=== PATIENT | male | born 1975 | race Two or more races ===

== ENCOUNTER 2025-11-06 06:50 | Inpatient (IN) | payer MEDICAID, OTHER ==
[~2025-11-06] VITALS: Ht 165.1 cm; Wt 78.2 kg
--- NOTE | 2025-11-06 07:27 | ED.PDOC ---
History of Present Illness(SKN HPI Comments 50 year old male PMHx DM presents to the ED with a chief complaint of abscess onset 1 month. He has been experiencing abscess to neck for the past month, as well as 2 small abscesses to groin region, keeps getting abscess different parts of his body, burst and return. Upon ED arrival, patient was hypertensive with BP of 210/119. Spouse states patient has DM, is not complaint with medication, has not seen PCP. Denies fever, chills, nausea, vomiting, diarrhea, headache, dizziness, recent travel, chest pain, shortness of breath. No other symptoms or modifying factors present at this time. Chief Complaint: Abscess Time Seen by MD: 07:20 History of Present Illness: Medications, Allergies Allergies: Coded Allergies: NO KNOWN ALLERGIES (Unverified , 11/06/25) Information Source: Patient, Relative Mode of Arrival: Ambulatory Severity: Moderate Timing: Months Duration: Since onset Prehospital treatment: None Location: Neck, Pelvis Mechanism: Preceding Wound Object: None Condition of Object: None Wound Type: Abscess Immunization Status of Animal: NA History of: Diabetes Past Medical History PAST MEDICAL HISTORY: DM Surgical History: Denies all surgeries Family History Family History: Reviewed,noncontributory to illness, No family hx of Cancer, No family hx of DM, No family hx of Heart gómez, No family hx of HTN, No family hx ofKidney gómez, No family hx of Liver gómez, No family hx of Lung gómez, No family hx of Stroke Social History Smoker: Non-Smoker Alcohol: Denies ETOH Use Drugs: Denies Drug Use Lives In: Home Constitutional: denies: chills, diaphoresis, fatigue, fever, malaise, sweats, weakness, others EENTM: denies: blurred vision, double vision, ear bleeding, ear discharge, ear drainage, ear pain, ear ringing, eye pain, eye redness, hearing loss, mouth pain, mouth swelling, nasal discharge, nose bleeding, nose congestion, nose pain, photophobia, tearing, throat pain, throat swelling, voice changes, others Respiratory: denies: cough, hemoptysis, orthopnea, SOB at rest, shortness of breath, SOB with excertion, stridor, wheezing, others Cardiovascular: denies: chest pain, dizzy spells, diaphoresis, Dyspnea on exertion, edema, irregular heart beat, left arm pain, lightheadedness, palpitations, PND, syncope, others Gastrointestinal: denies: abdomen distended, abdominal pain, blood streaked bowels, constipated, diarrhea, dysphagia, difficulty swallowing, hematemesis, melena, nausea, poor appetite, poor fluid intake, rectal bleeding, rectal pain, vomiting, others Genitourinary: denies: burning, dysuria, flank pain, frequency, hematuria, incontinence, penile discharge, penile sore, pain, testicle pain, testicle swelling, urgency, others Neurological: denies: dizziness, fainting, headache, left sided numbness, left sided weakness, numbness, paresthesia, pre-existing deficit, right sided numbness, right sided weakness, seizure, speech problems, tingling, tremors, weakness, others Musculoskeletal: denies: back pain, gout, joint pain, joint swelling, muscle pain, muscle stiffness, neck pain, others Integumetry: reports: others (abscess neck, groin); denies: bruises, change in color, change in hair/nails, dryness, laceration, lesions, lumps, rash, wounds Allergic/Immunocompromised: denies: Difficulty Healing, Frequent Infections, Hives, Itching, others Hematologic/Lymphatic: denies: anemia, blood clots, easy bleeding, easy bruising, swollen glands, others Endocrine: denies: excessive hunger, excessive sweating, excessive thirst, excessive urination, flushing, intolerance to cold, intolerance to heat, unexplained weight gain, unexplained weight loss, others Psychiatric: denies: anxiety, bipolar disorder, depression, hopeless, panic disorder, schizophrenia, sleepless, suicidal, others All Other Systems: Reviewed and Negative Physical Exam General Appearance: No Apparent Distress, Normal HEENT: Normal ENT Inspection, Pharynx Normal, TMs Normal Neck: Full Range of Motion, Non-Tender, Normal Inspection Respiratory: Chest Non-Tender, Lungs Clear, No Accessory Muscle Use, No Respiratory Distress, Normal Breath Sounds Cardiovascular: No Edema, No JVD, No Murmur, No Gallop, Normal Peripheral Pulses, Regular Rate/Rhythm Breast Exam: Deferred Gastrointestinal: No Organomegaly, Non Tender, No Pulsatile Mass, Normal Bowel Sounds, Soft Genitalia: Deferred Pelvic: Deferred Rectal: Deferred Extremities: No calf tenderness, Normal capillary refill, Normal inspection, Normal range of motion, Non-tender, No pedal edema Musculoskeletal : Apperance: Normal Neurologic: Alert, storage battery charger II-XII nml as Tested, No Motor Deficits, Normal Affect, Normal Mood, No Sensory Deficits Cerebellar Function: Normal Reflexes: Normal Skin: Dry, Normal Color, Warm Lymphatic: No Adenopathy Was a procedure done? Was a procedure done?: No Differential Diagnosis (INTG) Differential Diagnosis: Cellulitis Abscess: Abscess, Cellulitis X-Ray, Labs, Meds, VS Vital Signs Date Time Temp Pulse Resp B/P (MAP) Pulse Ox O2 Delivery O2 Flow Rate FiO2 11/06/25 09:36 97 16 216/118 11/06/25 09:31 97.8 97 16 216/118 (150) 99 97.8 11/06/25 07:49 89 16 98 Room Air* 0 21 11/06/25 07:47 98.2 89 16 184/101 (128) 98 98.2 11/06/25 06:52 100 20 210/119 96 Lab Test 11/06/25 10:05 11/06/25 07:34 Range/Units Urine Color Light-yellow Yellow Urine Clarity Clear Clear Urine pH 6.0 5.0-9.0 Urine Specific [place] 1.037 H 1.001-1.035 Urine Protein 2+ H Negative Urine Ketones Negative Negative Urine Blood 2+ H Negative /uL Urine Nitrite Negative Negative Urine Bilirubin Negative Negative Urine Urobilinogen Normal Negative mg/dL Urine Leukocyte Esterase Negative Negative /uL Urine RBC 15 0 - 3 /hpf Urine Microscopic WBC 1 0-3 /HPF Urine Squamous Epithelial Cells Few <5 /hpf Urine Bacteria None seen None Seen /hpf Urine Glucose 4+ H Normal mg/dL White Blood Count 11.0 H 4.4-10.8 10^3/uL Red Blood Count 5.14 4.5-5.90 10^6/uL Hemoglobin 15.4 13.5-17.5 g/dL Hematocrit 45.2 41.0-53.0 % Mean Corpuscular Volume 87.9 80.0-100.0 fL Mean Corpuscular Hemoglobin 29.9 28.0-32.0 pg Mean Corpuscular Hemoglobin Concent 34.0 32.0-36.0 g/dL Red Cell Distribution Width 13.2 11.8-14.3 % Platelet Count 388 140-450 10^3/uL Mean Platelet Volume 7.7 6.9-10.8 fL Neutrophils (%) (Auto) 79.9 37.0-80.0 % Lymphocytes (%) (Auto) 12.4 10.0-50.0 % Monocytes (%) (Auto) 7.1 0.0-12.0 % Eosinophils (%) (Auto) 0.3 0.0-7.0 % Basophils (%) (Auto) 0.3 0.0-2.0 % Neutrophils # (Auto) 8.8 H 1.6-8.6 10 ^3/uL Lymphocytes # (Auto) 1.4 0.4-5.4 10 ^3/uL Monocytes # (Auto) 0.8 0-1.3 10 ^3/uL Eosinophils # (Auto) 0 0-0.8 10 ^3/uL Basophils # (Auto) 0 0-0.2 10 ^3/uL Nucleated Red Blood Cells 0.0 % Prothrombin Time 9.9 9.3-11.8 sec Prothrombin Time INR 0.93 0.9-1.15 Activated Partial Thromboplast Time 29.3 24.5-34.5 SEC Sodium Level 133 L 136-145 mmol/L Potassium Level 4.0 3.5-5.1 mmol/L Chloride Level 96 L 98-107 mmol/L Carbon Dioxide Level 27 20-31 mmol/L Anion Gap 10 5-15 Blood Urea Nitrogen 13 9-23 mg/dL Creatinine 1.15 0.700-1.30 mg/dL Glomerular Filtration Rate Calc 77 >90 mL/min BUN/Creatinine Ratio 11.3 10.0-20.0 Serum Glucose 384 H 74-106 mg/dL Lactic Acid Level 0.9 0.4-2.0 mmol/L Calcium Level 9.4 8.7-10.4 mg/dL Total Bilirubin 0.6 0.2-1.0 mg/dL Aspartate Amino Transferase (AST) 14 13-40 U/L Alanine Aminotransferase (ALT) 21 7-40 U/L Alkaline Phosphatase 104 46-116 U/L Total Protein 7.3 5.7-8.2 g/dL Albumin 4.0 3.2-4.8 g/dL Current Medications Medications (Trade) Dose Ordered Sig/Christopher Route Start Time Stop Time Status Last Admin Lactated Ringer's 1,850 ml @ 1,850 mls/hr ONCE ONCE IV 12/15/25 07:30 11/06/25 08:29 DC 11/06/25 08:01 Vancomycin HCl 250 ml @ 250 mls/hr ONCE ONCE IV 11/06/25 07:30 11/06/25 08:29 DC 11/06/25 08:08 Cefepime HCl 50 ml @ 12.5 mls/hr ONCE ONCE IV 11/06/25 07:30 11/06/25 11:29 11/06/25 09:56 Morphine Sulfate 4 mg ONCE ONCE IV 11/06/25 09:30 11/06/25 09:31 DC 11/06/25 09:36 Ondansetron HCl (Zofran) 4 mg ONCE ONCE IV 11/06/25 09:30 11/06/25 09:31 DC 11/06/25 09:36 [place] [id number] Ph: [phone] DIAGNOSTIC IMAGING Diagnostic Imaging Report : [id number] Signed PATIENT: BRANNON HOFFMANN ACCT: [id number] UNIT: [id number] : 1975 LOC: ER ROOM / BED: / AGE / SEX: 50 / M ADM STATUS: REG ER SERVICE 8 ORDERING PHYSICIAN: DEANNE JONES MD PROCEDURE(s): CXRP - CHEST PORTABLE REASON: htn ORDER NUMBER(s): [id number], ACCESSION NUMBER(s): [id number] EXAM: XY CHEST PORTABLE HISTORY: htn COMPARISON: Chest x-ray dated 12/12/2022 was not made available on the PACS system for viewing. TECHNIQUE: Portable AP view of the chest was performed. FINDINGS: No pneumothorax or consolidative infiltrates. There is central interstitial prominence. The heart is borderline enlarged. IMPRESSION: Central interstitial prominence may be due to reactive airways disease or mild CHF. The lungs are otherwise clear. ATED BY: GISELL WALLACE MD DICTATED DATE/TIME: 11/06/25800 SIGNED BY: GISELL WALLACE MD SIGNED DATE/TIME: 11/06/25800 CC: Time of 1ST Reevaluation: 07:50 Reevaluation 1ST: Unchanged Patient Education/Counseling: Diagnosis, Treatment, Prognosis Family Education/Counseling: Diagnosis, Treatment, Prognosis SEPSIS Sepsis Screen Date sepsis recognized/suspect: Nov 06, 2025 Time Sepsis recognized/suspect: 655 Recent Procedure: No On Antibiotic Therapy: No Respiratory Rate >20: No Heart Rate >90: No Temp<36 C (96.8 F) or >38.3 C: No SBP <90 or MAP <65 mmHG: No New Acute Mental Status Change: No Is the patient on CPAP, BIPAP,: No Physician Orders Chest Portable (11/06/25 07:19) Accucheck (11/06/25 07:19) Blood Culture (11/06/25 07:19) Cefepime 1gm/50ml (Maxipime 1gm/50ml) (11/06/25 07:30) Notify Md If Map <65 Or Bp<90 (11/06/25 07:19) If Map<65 Start Vasopressor (11/06/25 07:19) Sepsis Reassesment After Fluid (11/06/25 08:19) Hydralazine Injection (Apresoline Inject (11/06/25 10:45) Vital Signs Date Time Temp Pulse Resp B/P (MAP) Pulse Ox O2 Delivery O2 Flow Rate FiO2 11/06/25 09:36 97 16 216/118 11/06/25 09:31 97.8 97 16 216/118 (150) 99 97.8 11/06/25 07:49 89 16 98 Room Air* 0 21 11/06/25 07:47 98.2 89 16 184/101 (128) 98 98.2 11/06/25 06:52 100 20 210/119 96 Laboratory Tests Test 11/06/25 07:34 Lactic Acid Level 0.9 mmol/L (0.4-2.0) White Blood Count 11.0 10^3/uL (4.4-10.8) H Medications Medications Dose Ordered Sig/Christopher Route Start Time Stop Time Status Last Admin Dose Admin Cefepime HCl 50 ml @ 12.5 mls/hr ONCE ONCE IV 11/06/25 07:30 11/06/25 11:29 11/06/25 09:56 Lactated Ringer's 1,850 ml @ 1,850 mls/hr ONCE ONCE IV 11/06/25 07:30 11/06/25 08:29 DC 11/06/25 08:01 Morphine Sulfate 4 mg ONCE ONCE IV 11/06/25 09:30 11/06/25 09:31 DC 11/06/25 09:36 Ondansetron HCl 4 mg ONCE ONCE IV 11/06/25 09:30 11/06/25 09:31 DC 11/06/25 09:36 Vancomycin HCl 250 ml @ 250 mls/hr ONCE ONCE IV 11/06/25 07:30 11/06/25 08:29 DC 11/06/25 08:08 Departure 1 Departure Time of Disposition: 10:34 (Patient presented with hypertension and symptoms concerning for hypertensive emergency. Patient is receiving iv blood pressure medications requiring intensive monitoring. Data: 1. I ordered and reviewed the result of at least 3 labs including a CBC, BMP, and Urinalysis. 2. I independently interpreted the following tests: Chest x-ray some pulmonary vascular congestion. EKG which is Normal Sinus RhythmRisk:This patient has a high risk of morbidity due to further diagnostic testing or treatment and may suffer from an acute cardiac disorder. Workup reveals hypertensive emergency and patient should be admitted for further workup. and possible expert consultation. Patient with multiple abscesses concerning for possible diffuse cellulitis or sepsis. We will admit patient for further workup) Impression: Primary Impression: Hypertensive urgency Additional Impressions: Abscess Cellulitis Disposition: ADMITTED INPATIENT Admit to: Tele Condition: Guarded Critical Care Note Critical Care Time?: Yes Critical care comment: Hypertensive urgency Authorized and Performed by: Deanne Jones MD Total critical care time: Approximately 37 minutes Due to a high probability of clinically significant, life threatening deterioration, the patient required my highest level of preparedness to intervene emergently and I personally spent this critical care time directly and personally managing the patient. This critical care time included obtaining a history; examining the patient; pulse oximetry; ordering and review of studies; arranging urgent treatment with development of a management plan; evaluation of patient's response to treatment; frequent reassessment; and, discussions with other providers. This critical care time was performed to assess and manage the high probability of imminent, life-threatening deterioration that could result in multi-organ failure. It was exclusive of separately billable procedures and treating other patients and teaching time. Please see my other sections and the rest of the note for further information on patient assessment and treatment. Stability Stability form required: No Heart Score Heart Score: Heart Score Response (Comments) Value History N/A 0 EKG N/A 0 Age N/A 0 Risk Factors N/A 0 Troponin N/A 0 Total 0 I personally scribed for DEANNE JONES MD ([email or web address]) on 11/06/25 at 07:27. Electronically submitted by Silvana Rios ([email or web address]). I personally scribed for DEANNE JONES MD ([email or web address]) on 11/06/25 at 08:07. Electronically submitted by Silvana Rios ([email or web address]). DEANNE JONES MD Nov 06, 2025 07:27
[2025-11-06 07:49] VITALS: PULSE 89; RESP 16; O2SAT 98
[2025-11-06] MEDS: LACTATED RINGER'S 1,850 ML IV ONE (08:01)
--- NOTE | 2025-11-06 08:03 | DVH ---
EXAM: XY CHEST PORTABLE HISTORY: htn COMPARISON: Chest x-ray dated 12/12/2022 was not made available on the PACS system for viewing. TECHNIQUE: Portable AP view of the chest was performed. FINDINGS: No pneumothorax or consolidative infiltrates. There is central interstitial prominence. The heart is borderline enlarged. IMPRESSION: Central interstitial prominence may be due to reactive airways disease or mild CHF. The lungs are otherwise clear.
[2025-11-06] MEDS: VANCOMYCIN 1GM/250ML KIT 250 ML IV ONE (08:08)
[2025-11-06 08:17] LABS: Hematocrit 45.2 % (41.0-53.0); Hemoglobin 15.4 g/dL (13.5-17.5); Mean Corpuscular Hemoglobin 29.9 pg (28.0-32.0); Mean Corpuscular Volume 87.9 fL (80.0-100.0); Nucleated Red Blood Cells % 0.0 %
[2025-11-06 08:30] LABS: Alanine Aminotransferase 21 U/L (7-40); Albumin 4.0 g/dL (3.2-4.8); Alkaline Phosphatase 104 U/L (46-116); Anion Gap 10 (5-15); BUN/Creatinine Ratio 11.3 (10.0-20.0); Blood Urea Nitrogen 13 mg/dL (9-23); Calcium 9.4 mg/dL (8.7-10.4); Carbon Dioxide 27 mmol/L (20-31); Potassium 4.0 mmol/L (3.5-5.1); Total Protein 7.3 g/dL (5.7-8.2)
[2025-11-06 08:31] LABS: Bilirubin, Total 0.6 mg/dL (0.2-1.0); Chloride 96 mmol/L (98-107); Glucose 384 mg/dL (74-106); INR 0.93 (0.9-1.15); Partial Thromboplastin Time 29.3 SEC (24.5-34.5); Prothrombin Time 9.9 sec (9.3-11.8); Sodium 133 mmol/L (136-145)
[2025-11-06] MEDS: ONDANSETRON HCL 4 MG/2 ML VIAL IV ONE (09:36)
[2025-11-06] MEDS: MORPHINE SULFATE 4 MG/ML SYR/VIAL IV ONE (09:36)
[2025-11-06] MEDS: CEFEPIME 1GM/50ML 50 ML IV ONE (09:56)
[2025-11-06 10:23] LABS: Urine Protein, UAD 2+ (Negative)
[2025-11-06] MEDS: hydrALAZINE HCL 20 MG/ML VL IV ONE (11:05)
[2025-11-06] MEDS ORDERED: DEXTROSE (50%) 50ML SYRG IV PRN ×2 (12:45→18:00)
[2025-11-06] MEDS ORDERED: DOCUSATE SOD 100 MG CAP PO PRN (12:45)
[2025-11-06] MEDS ORDERED: ACETAMINOPHEN 325 MG TAB PO PRN (12:45)
[2025-11-06] MEDS: SODIUM CHLORIDE 0.9% 1,000 ML IV ONE (12:45)
--- NOTE | 2025-11-06 13:03 | DVHHP2 ---
History of Present Illness Reason for Visit: Abscess History of Present Illness Marcelino Carbajal is a 50-year-old male with past medical history of hypertension and diabetes, who came to the hospital for an abscess on his neck, and 2 in his groin. Patient states he has had the abscess for a few days. He has popped both abscess on the right side of his groin. He states he finally came in due to the pain from the abscess on his neck. He is having difficulty moving due to the pain. Patient admits to being diabetic and having hypertension, but not following up with primary care provider and not having any medications. Cardiovascular: HTN Endocrine: Diabetes Past Surgical History: None Smoke: No ALCOHOL: occassional Drugs: Other (Methamphetamines) Lives: with Family Domestic Violence: Neg Review of Systems Constitutional: No: Fever, Chills, Sweats, Weakness, Malaise, Other Eyes: No: Pain, Vision change, Conjunctivae inflammation, Eyelid inflammation, Other, Redness ENT: No: Ear pain, Ear discharge, Nose pain, Nose discharge, Nose congestion, Mouth pain, Mouth swelling, Throat pain, Throat swelling, Other Respiratory: No: Cough, Dry, Shortness of breath, SOB with excertion, Wheezing, Hemoptysis, Pleuritic Pain, Sputum, Wheezing, Other Cardiovascular: No: Chest Pain, Palpitations, Orthopnea, Paroxysmal Noc. Dyspnea, Edema, Lt Headedness, Other Gastrointestinal: No: Nausea, Vomiting, Abdominal Pain, Diarrhea, Constipation, Melena, Hematochezia, Other Genitourinary: No Dysuria, No Frequency, No Incontinence, No Hematuria, No Retention, No Other Musculoskeletal: No: other, neck pain, shoulder pain, arm pain, back pain, hand pain, leg pain, foot pain Skin: Other (abscess on left side of neck, and 2 in right side of groin); No: Rash, Lesions, Jaundice, Bruising Neurological: No: Weakness, Numbness, Incoordination, Change in speech, Confusion, Seizures, Other Allergies: Coded Allergies: NO KNOWN ALLERGIES (Unverified , 11/06/25) Medications Current Medications Medications Dose Ordered Sig/Christopher Route Start Time Stop Time Status Last Admin Dose Admin Acetaminophen/ Hydrocodone Bitart 1 tab Q4HP PRN PO 11/06/25 12:45 UNV Ondansetron HCl 4 mg Q4HP PRN IV 11/06/25 12:45 UNV Docusate Sodium 100 mg BIDPRN PRN PO 11/06/25 12:45 UNV Acetaminophen 650 mg Q6HP PRN PO 11/06/25 12:45 UNV Morphine Sulfate 2 mg Q4HPRN PRN IV 11/06/25 12:45 UNV Diagnostic Test (Pha) 1 strip Q6HR 11/06/25 18:00 UNV Insulin Human Regular Q6HR SC 11/06/25 18:00 UNV Exam Vital Signs Vital Signs Date Time Temp Pulse Resp B/P (MAP) Pulse Ox O2 Delivery O2 Flow Rate FiO2 11/06/25 11:26 98.6 102 18 167/96 (119) 97 98.6 11/06/25 07:49 Room Air* 0 21 General Appearance: Alert, Oriented X3, Cooperative, mild distress HEENT: Atraumatic, PERRLA Respiratory: Clear to auscultation, Normal air movement Cardiovascular: Regular rate, Normal S1, Normal S2, No murmurs Abdominal: Normal bowel sounds, Soft, No tenderness, No hepatospenomegaly Extremities: No clubbing, No cyanosis, No edema, Normal pulses, No tenderness/swelling Skin: No rashes, No breakdown, No significant lesion Neuro: Normal gait, Normal speech, Strength at 5/5 X4 ext Psych/Mental Status: Mental status NL Labs/Xrays Labs Test 11/06/25 10:05 11/06/25 07:34 Range/Units Urine Color Light-yellow Yellow Urine Clarity Clear Clear Urine pH 6.0 5.0-9.0 Urine Specific [place] 1.037 H 1.001-1.035 Urine Protein 2+ H Negative Urine Ketones Negative Negative Urine Blood 2+ H Negative /uL Urine Nitrite Negative Negative Urine Bilirubin Negative Negative Urine Urobilinogen Normal Negative mg/dL Urine Leukocyte Esterase Negative Negative /uL Urine RBC 15 0 - 3 /hpf Urine Microscopic WBC 1 0-3 /HPF Urine Squamous Epithelial Cells Few <5 /hpf Urine Bacteria None seen None Seen /hpf Urine Glucose 4+ H Normal mg/dL White Blood Count 11.0 H 4.4-10.8 10^3/uL Red Blood Count 5.14 4.5-5.90 10^6/uL Hemoglobin 15.4 13.5-17.5 g/dL Hematocrit 45.2 41.0-53.0 % Mean Corpuscular Volume 87.9 80.0-100.0 fL Mean Corpuscular Hemoglobin 29.9 28.0-32.0 pg Mean Corpuscular Hemoglobin Concent 34.0 32.0-36.0 g/dL Red Cell Distribution Width 13.2 11.8-14.3 % Platelet Count 388 140-450 10^3/uL Mean Platelet Volume 7.7 6.9-10.8 fL Neutrophils (%) (Auto) 79.9 37.0-80.0 % Lymphocytes (%) (Auto) 12.4 10.0-50.0 % Monocytes (%) (Auto) 7.1 0.0-12.0 % Eosinophils (%) (Auto) 0.3 0.0-7.0 % Basophils (%) (Auto) 0.3 0.0-2.0 % Neutrophils # (Auto) 8.8 H 1.6-8.6 10 ^3/uL Lymphocytes # (Auto) 1.4 0.4-5.4 10 ^3/uL Monocytes # (Auto) 0.8 0-1.3 10 ^3/uL Eosinophils # (Auto) 0 0-0.8 10 ^3/uL Basophils # (Auto) 0 0-0.2 10 ^3/uL Nucleated Red Blood Cells 0.0 % Prothrombin Time 9.9 9.3-11.8 sec Prothrombin Time INR 0.93 0.9-1.15 Activated Partial Thromboplast Time 29.3 24.5-34.5 SEC Sodium Level 133 L 136-145 mmol/L Potassium Level 4.0 3.5-5.1 mmol/L Chloride Level 96 L 98-107 mmol/L Carbon Dioxide Level 27 20-31 mmol/L Anion Gap 10 5-15 Blood Urea Nitrogen 13 9-23 mg/dL Creatinine 1.15 0.700-1.30 mg/dL Glomerular Filtration Rate Calc 77 >90 mL/min BUN/Creatinine Ratio 11.3 10.0-20.0 Serum Glucose 384 H 74-106 mg/dL Lactic Acid Level 0.9 0.4-2.0 mmol/L Calcium Level 9.4 8.7-10.4 mg/dL Total Bilirubin 0.6 0.2-1.0 mg/dL Aspartate Amino Transferase (AST) 14 13-40 U/L Alanine Aminotransferase (ALT) 21 7-40 U/L Alkaline Phosphatase 104 46-116 U/L Total Protein 7.3 5.7-8.2 g/dL Albumin 4.0 3.2-4.8 g/dL EXAM: XY CHEST PORTABLE FINDINGS: No pneumothorax or consolidative infiltrates. There is central interstitial prominence. The heart is borderline enlarged. IMPRESSION: Central interstitial prominence may be due to reactive airways disease or mild CHF. The lungs are otherwise clear. SEPSIS Sepsis Screen Date sepsis recognized/suspect: Nov 06, 2025 Time Sepsis recognized/suspect: 655 Recent Procedure: No On Antibiotic Therapy: No Respiratory Rate >20: No Heart Rate >90: No Temp<36 C (96.8 F) or >38.3 C: No SBP <90 or MAP <65 mmHG: No New Acute Mental Status Change: No Is the patient on CPAP, BIPAP,: No Physician Orders Chest Portable (11/06/25 07:19) Accucheck (11/06/25 07:19) Blood Culture (11/06/25 07:19) Notify Md If Map <65 Or Bp<90 (11/06/25 07:19) If Map<65 Start Vasopressor (11/06/25 07:19) Sepsis Reassesment After Fluid (11/06/25 08:19) Admit (11/06/25 12:42) Code Status (11/06/25 12:42) Hydrocodone-Acet 5/325mg Tab (David 5/32 (11/06/25 12:45) Ondansetron Hcl (Zofran) (11/06/25 12:45) Docusate Sodium Capsule (Colace Capsule) (11/06/25 12:45) Complete Blood Count (11/07/25 04:00) Comprehensive Metabolic Panel (11/07/25 04:00) Npo (Nothing By Mouth) Diet (11/06/25 Lunch) Condition: Serious (11/06/25 12:42) Acetaminophen Tablet (Tylenol Tablet) (11/06/25 12:45) Morphine Sulfate Injection (11/06/25 12:45) Glucose Blood (Accu-Chek Comfort Curve T (11/06/25 18:00) Mild Sliding Scale Npo - Q6hr (11/06/25 18:00) Dextrose 50% Syringe (11/06/25 12:45) Npo Except For Medications (11/06/25 12:42) NS (11/06/25 12:45) Cefepime 1 Gm (11/06/25 14:00) Drug Screen (11/06/25 12:50) * Surgical Consult (11/06/25 ) Vital Signs Date Time Temp Pulse Resp B/P (MAP) Pulse Ox O2 Delivery O2 Flow Rate FiO2 11/06/25 11:26 98.6 102 18 167/96 (119) 97 98.6 11/06/25 11:10 95 16 190/118 11/06/25 11:05 190/118 11/06/25 09:36 97 16 216/118 11/06/25 09:31 97.8 97 16 216/118 (150) 99 97.8 11/06/25 07:49 89 16 98 Room Air* 0 21 11/06/25 07:47 98.2 89 16 184/101 (128) 98 98.2 11/06/25 06:52 100 20 210/119 96 Laboratory Tests Test 11/06/25 07:34 Lactic Acid Level 0.9 mmol/L (0.4-2.0) White Blood Count 11.0 10^3/uL (4.4-10.8) H Medications Medications Dose Ordered Sig/Christopher Route Start Time Stop Time Status Last Admin Dose Admin Cefepime HCl 50 ml @ 12.5 mls/hr ONCE ONCE IV 11/06/25 07:30 11/06/25 11:29 DC 11/06/25 09:56 12.5 MLS/HR Hydralazine HCl 20 mg ONCE ONCE IV 11/06/25 10:45 11/06/25 10:46 DC 11/06/25 11:05 20 MG Lactated Ringer's 1,850 ml @ 1,850 mls/hr ONCE ONCE IV 11/06/25 07:30 11/06/25 08:29 DC 11/06/25 08:01 1,850 MLS/HR Morphine Sulfate 4 mg ONCE ONCE IV 11/06/25 09:30 11/06/25 09:31 DC 11/06/25 09:36 4 MG Ondansetron HCl 4 mg ONCE ONCE IV 11/06/25 09:30 11/06/25 09:31 DC 11/06/25 09:36 4 MG Vancomycin HCl 250 ml @ 250 mls/hr ONCE ONCE IV 11/06/25 07:30 11/06/25 08:29 DC 11/06/25 08:08 250 MLS/HR Assessment/Plan Assessment/Plan Assessment: Abscess, Leukocytosis, Hyperglycemia, Uncontrolled diabetes, Uncontrolled hypertension, Plan: Admit to Med-Surg, Surgical consult, Wound care consult, IV antibiotics, IV hydration, NPO until seen by surgery, A1c, Accu checks with sliding scale, Started on antihypertensives, PRN antihypertensives, Plan discussed with: Patient My Orders Orders - SHYANN VASQUEZ Procedure Category Date Status Time Admit ADMIT 11/06/25 Transmitted 12:42 Code Status CODE 11/06/25 Transmitted 12:42 Hydrocodone-Acet PHA 11/06/25 Logged 5/325mg Tab (David 12:45 Ondansetron Hcl PHA 11/06/25 Logged (Zofran) 12:45 Docusate Sodium PHA 11/06/25 Logged Capsule (Colace 12:45 Complete Blood Count LAB 11/07/25 Verified 04:00 Comprehensive LAB 11/07/25 Verified Metabolic Panel 04:00 Npo (Nothing By DIET 11/06/25 Transmitted Mouth) Diet Lunch Condition: Serious SACHA 11/06/25 In Process 12:42 Acetaminophen Tablet PHA 11/06/25 Transmitted (Tylenol Tablet) 12:45 Morphine Sulfate PHA 11/06/25 Transmitted Injection 12:45 Glucose Blood PHA 11/06/25 Transmitted (Accu-Chek Comfort 18:00 Mild Sliding Scale PHA 11/06/25 Transmitted Npo - Q6hr 18:00 Dextrose 50% Syringe PHA 11/06/25 Transmitted 12:45 Npo Except For SACHA 11/06/25 In Process Medications 12:42 NS PHA 11/06/25 Transmitted 12:45 Cefepime 1 Gm PHA 11/06/25 Transmitted 14:00 Drug Screen LAB 11/06/25 Logged 12:50 * Surgical Consult CONS 11/06/25 Transmitted Date of Service: Nov 06, 2025 Billing Provider: SHYANN VASQUEZ Common Visit Codes: [id number] INP/OBS CARE (MOD) SHYANN VASQUEZ Nov 06, 2025 13:03
[2025-11-06 13:30] VITALS: BP 174/94; PULSE 109; TEMP 98.2; O2SAT 96
[2025-11-06] MEDS: CEFEPIME 1GM/50ML 50 ML IV SCH (13:33)
--- NOTE | 2025-11-06 14:08 | DVHINCON2 ---
Consultation - Surgical Date Seen: Nov 06, 2025 Referring Physician Reason for Consultation neck abscess History of Present Illness History of Present Illness 50-year-old male came to the hospital for an abscess on his neck, and 2 in his groin. Patient states the neck abscess ifs very painful and has become worse over the past few days. Past Medical/Surgical History Past Medical/Surgical History none Family and Social History Family and Social History ALCOHOL: occassional Drugs: Other (Methamphetamines) Lives: with Family Allergies and medications Allergies: Coded Allergies: NO KNOWN ALLERGIES (Unverified , 11/06/25) Review of systems Review of Systems: HEENT:Normal, CVS:Normal, RESPIRATORY:Normal, GI:Normal, :Normal, MSK:Normal, NEURO:Normal Examination Vital signs Vital Signs Date Time Temp Pulse Resp B/P (MAP) Pulse Ox O2 Delivery O2 Flow Rate FiO2 11/06/25 13:30 98.2 109 174/94 (120) 96 98.2 11/06/25 11:26 18 11/06/25 07:49 Room Air* 0 21 Medications Current Medications Medications (Trade) Dose Ordered Sig/Christopher Route PRN Reason Start Time Stop Time Status Last Admin Acetaminophen/ Hydrocodone Bitart (Lisman 5/325MG Tab) 1 tab Q4HP PRN PO MODERATE PAIN (4-6 PAIN SCALE) 11/06/25 12:45 Ondansetron HCl (Zofran) 4 mg Q4HP PRN IV NAUSEA / VOMITING 11/06/25 12:45 Docusate Sodium (Colace Capsule) 100 mg BIDPRN PRN PO FOR CONSTIPATION 11/06/25 12:45 Acetaminophen (Tylenol Tablet) 650 mg Q6HP PRN PO PAIN SCALE 1-3 OR TEMP>100.4 11/06/25 12:45 Morphine Sulfate 2 mg Q4HPRN PRN IV SEVERE PAIN (7-10 PAIN SCALE) 11/06/25 12:45 Diagnostic Test (Pha) (Accu-Chek Comfort Curve T) 1 strip Q6HR 11/06/25 18:00 Insulin Human Regular (InsuLIN R) Q6HR SC 11/06/25 18:00 Dextrose 50 ml UD PRN IV Blood Sugar LESS THAN 60 11/06/25 12:45 Cefepime HCl 50 ml @ 12.5 mls/hr Q8HR IV 11/06/25 14:00 11/06/25 13:33 Laboratory Labs Test 11/06/25 10:05 11/06/25 07:34 Range/Units Urine Color Light-yellow Yellow Urine Clarity Clear Clear Urine pH 6.0 5.0-9.0 Urine Specific Hickman 1.037 H 1.001-1.035 Urine Protein 2+ H Negative Urine Ketones Negative Negative Urine Blood 2+ H Negative /uL Urine Nitrite Negative Negative Urine Bilirubin Negative Negative Urine Urobilinogen Normal Negative mg/dL Urine Leukocyte Esterase Negative Negative /uL Urine RBC 15 0 - 3 /hpf Urine Microscopic WBC 1 0-3 /HPF Urine Squamous Epithelial Cells Few <5 /hpf Urine Bacteria None seen None Seen /hpf Urine Glucose 4+ H Normal mg/dL White Blood Count 11.0 H 4.4-10.8 10^3/uL Red Blood Count 5.14 4.5-5.90 10^6/uL Hemoglobin 15.4 13.5-17.5 g/dL Hematocrit 45.2 41.0-53.0 % Mean Corpuscular Volume 87.9 80.0-100.0 fL Mean Corpuscular Hemoglobin 29.9 28.0-32.0 pg Mean Corpuscular Hemoglobin Concent 34.0 32.0-36.0 g/dL Red Cell Distribution Width 13.2 11.8-14.3 % Platelet Count 388 140-450 10^3/uL Mean Platelet Volume 7.7 6.9-10.8 fL Neutrophils (%) (Auto) 79.9 37.0-80.0 % Lymphocytes (%) (Auto) 12.4 10.0-50.0 % Monocytes (%) (Auto) 7.1 0.0-12.0 % Eosinophils (%) (Auto) 0.3 0.0-7.0 % Basophils (%) (Auto) 0.3 0.0-2.0 % Neutrophils # (Auto) 8.8 H 1.6-8.6 10 ^3/uL Lymphocytes # (Auto) 1.4 0.4-5.4 10 ^3/uL Monocytes # (Auto) 0.8 0-1.3 10 ^3/uL Eosinophils # (Auto) 0 0-0.8 10 ^3/uL Basophils # (Auto) 0 0-0.2 10 ^3/uL Nucleated Red Blood Cells 0.0 % Prothrombin Time 9.9 9.3-11.8 sec Prothrombin Time INR 0.93 0.9-1.15 Activated Partial Thromboplast Time 29.3 24.5-34.5 SEC Sodium Level 133 L 136-145 mmol/L Potassium Level 4.0 3.5-5.1 mmol/L Chloride Level 96 L 98-107 mmol/L Carbon Dioxide Level 27 20-31 mmol/L Anion Gap 10 5-15 Blood Urea Nitrogen 13 9-23 mg/dL Creatinine 1.15 0.700-1.30 mg/dL Glomerular Filtration Rate Calc 77 >90 mL/min BUN/Creatinine Ratio 11.3 10.0-20.0 Serum Glucose 384 H 74-106 mg/dL Hemoglobin A1c 13.1 H <5.7 % A1C Lactic Acid Level 0.9 0.4-2.0 mmol/L Calcium Level 9.4 8.7-10.4 mg/dL Total Bilirubin 0.6 0.2-1.0 mg/dL Aspartate Amino Transferase (AST) 14 13-40 U/L Alanine Aminotransferase (ALT) 21 7-40 U/L Alkaline Phosphatase 104 46-116 U/L Total Protein 7.3 5.7-8.2 g/dL Albumin 4.0 3.2-4.8 g/dL Examination: GENERAL:Normal, HEENT:Normal, NECK:Normal, LUNGS:Normal, CVS:Normal, ABDOMEN:Normal, MSK:Normal, SKIN:Abnormal (neck abscess) Problem List/Assessment/Plan Problems: (1) Abscess Assessment and Plan patient complaint of neck abscess and groin , per patient groin abscess have healed and than the neck abscess appeared and became progressively worse over the past few days. abscess to left side of posterior neck, erythema slightly elevated WBC Plan: IV antibiotics and warm compress reevaluate tomorrow Plan discussed with Plan discussed with: Patient Visit Coding Surgery Date of Service if different f: Nov 06, 2025 Billing Provider: MICHELLE NEGRETE MD Surgery Visit Codes: 57013 - INP CONSULT <80 MIN EDUAR ARORA NP Nov 06, 2025 14:08
[2025-11-06] MEDS: HYDROcodone-ACET 5/325MG TAB PO PRN (16:45)
[2025-11-06] MEDS: LISINOPRIL 5 MG TAB PO ONE (17:42)
[2025-11-06] MEDS: hydrALAZINE HCL 20 MG/ML VL IV PRN (17:43)
[2025-11-06] MEDS ORDERED: InsuLIN REG 1unit/0.01ml Soln (100units/ml) SC SCH (18:00)
[2025-11-06] MEDS ORDERED: ACCU-CHEK COMFORT CURVE STRIP VI SCH (18:00)
[2025-11-06 20:00] VITALS: PULSE 110; RESP 18; O2SAT 94
[2025-11-06 20:20] LABS: Amphetamine Screen, Urine Neg (NEGATIVE)
[2025-11-06 20:28] LABS: Barbiturate Scree,Urine Neg (NEGATIVE); Benzodiazephine Screen, Urine Neg (NEGATIVE); Cannabinoid Screen, Urine Neg (NEGATIVE); Phencyclidine Screen, Urine Neg (NEGATIVE)
[2025-11-06 20:37] LABS: Cocaine Screen, Urine Neg (NEGATIVE)
[2025-11-06 20:56] LABS: Opiate Scree,Urine Neg (NEGATIVE)
[2025-11-06 21:00] VITALS: BP 151/91; PULSE 109; RESP 20; TEMP 98.6; O2SAT 94
[2025-11-06] MEDS: InsuLIN REG 1unit/0.01ml Soln (100units/ml) SC SCH (21:39)
[2025-11-06] MEDS: ACCU-CHEK COMFORT CURVE STRIP VI SCH (21:41)
[2025-11-06 22:42] VITALS: RESP 18
[2025-11-06 23:30] VITALS: BP 154/87; PULSE 100; RESP 16; TEMP 98; O2SAT 98
[2025-11-07] VITALS (7 sets, daily range): BP systolic 142–166; BP diastolic 88–97; PULSE 94–101; RESP 16–18; TEMP 98–98.8; O2SAT 94–98
[2025-11-07 06:10] LABS: Hematocrit 38.5 % (41.0-53.0); Hemoglobin 13.2 g/dL (13.5-17.5); Mean Corpuscular Hemoglobin 30.0 pg (28.0-32.0); Mean Corpuscular Volume 87.6 fL (80.0-100.0); Nucleated Red Blood Cells % 0.2 %
[2025-11-07 06:16] LABS: Alanine Aminotransferase 13 U/L (7-40); Albumin 3.3 g/dL (3.2-4.8); Alkaline Phosphatase 81 U/L (46-116); Anion Gap 11 (5-15); BUN/Creatinine Ratio 13.0 (10.0-20.0); Blood Urea Nitrogen 12 mg/dL (9-23); Carbon Dioxide 25 mmol/L (20-31); Chloride 99 mmol/L (98-107); Potassium 3.6 mmol/L (3.5-5.1); Total Protein 6.0 g/dL (5.7-8.2)
[2025-11-07 06:17] LABS: Bilirubin, Total 0.6 mg/dL (0.2-1.0); Calcium 8.4 mg/dL (8.7-10.4); Glucose 162 mg/dL (74-106); Sodium 135 mmol/L (136-145)
[2025-11-07] MEDS: InsuLIN REG 1unit/0.01ml Soln (100units/ml) SC SCH (06:19)
[2025-11-07] MEDS: DOXYCYCLINE 100MG/100ML 100 ML IV SCH (08:45)
[2025-11-07] MEDS: LISINOPRIL 5 MG TAB PO SCH (09:13)
--- NOTE | 2025-11-07 09:49 | DVHPN2 ---
Progress Note Date Seen: Nov 07, 2025 Medical Necessity Reason Pt with a Central, PICC or Fol: No Objective vital signs Vital Sign Date Time Temp Pulse Resp B/P (MAP) Pulse Ox O2 Delivery O2 Flow Rate FiO2 11/07/25 09:13 149/90 11/07/25 09:00 98.7 94 18 94 98.7 11/06/25 22:42 Room Air* 0 21 Total Intake and Output 11/06/25 11/06/25 11/07/25 15:00 23:00 07:00 Intake Total 300 ml 550 ml 0 ml Balance 300 ml 550 ml 0 ml medications Current Medications Medications Dose Ordered Sig/Christopher Route Start Time Stop Time Status Last Admin Dose Admin Acetaminophen/ Hydrocodone Bitart 1 tab Q4HP PRN PO 11/06/25 12:45 11/07/25 08:37 1 TAB Ondansetron HCl 4 mg Q4HP PRN IV 11/06/25 12:45 Docusate Sodium 100 mg BIDPRN PRN PO 11/06/25 12:45 Acetaminophen 650 mg Q6HP PRN PO 11/06/25 12:45 Morphine Sulfate 2 mg Q4HPRN PRN IV 11/06/25 12:45 Cefepime HCl 50 ml @ 12.5 mls/hr Q8HR IV 11/06/25 14:00 11/07/25 06:15 12.5 MLS/HR Lisinopril 10 mg DAILY PO 11/07/25 10:00 11/07/25 09:13 10 MG Diagnostic Test (Pha) 1 strip ACHS 11/06/25 22:00 11/07/25 06:18 1 STRIP Insulin Human Regular HS SC 11/06/25 22:00 11/06/25 21:39 8 UNITS Insulin Human Regular AC SC 11/07/25 07:00 11/07/25 06:19 3 UNITS Dextrose 50 ml UD PRN IV 11/06/25 18:00 Doxycycline Hyclate 100 ml @ 50 mls/hr Q12H IV 11/07/25 08:45 laboratory and microbiology Laboratory Tests 11/07/25 04:56 Test 11/07/25 04:56 Range/Units Serum Glucose 162 #H 74-106 mg/dL Problem List/Assessment/Plan Problem List/Assessment/Plan 11/07/25 abscess on posterior aspect of left neck is not improving despite conservative measures, WBC elevation persists. I and D explained as were potential risks and complications Plan discussed with: Patient MICHELLE NEGRETE MD Nov 07, 2025 09:49
[2025-11-07 11:23] LABS: INR 1.01 (0.9-1.15); Partial Thromboplastin Time 32.9 SEC (24.5-34.5); Prothrombin Time 10.7 sec (9.3-11.8)
[2025-11-07] MEDS: SODIUM CHLORIDE 0.9% 1,000 ML IV SCH (11:30)
--- NOTE | 2025-11-07 11:38 | DVHPNRES ---
Progress Note Date Seen: Nov 07, 2025 Resident Creating Document: ROSENDO HUANG RESIDENT Has the PT tested + for MRSA If YES, has PT been informed?: No Medical Necessity Reason Pt with a Central, PICC or Fol: No Subjective Review of Systems Marcelino Collazo is a 50-year-old male with past medical history of hypertension and diabetes mellitus type 2. The patient came to the [facility] ED with chief complaint of 2 weeks of an abscess on the back of his neck, that is tender 7/10 dull pain, associated with erythema, edema and yellowish secretion. On further questioning, the patient reports he had 2 abscess in his left groin that resolved after spontaneous drainage. The patient admits to being diabetic and having hypertension, but not following up with primary care provider and not having any medications. The patient reported the swelling on his neck worsen and the paint prevented from moving his neck, this prompted his visit to the ED. In the ED WBC was 11 and HbA1C was 13.1%. The patient was admitted for further diagnostic and management. PMHx: HTN and Diabetes Past Surgical History: None Social Hx: Smoke: No, alcohol:occasional Drugs: Other (Methamphetamines) Lives: with Family Allergies: No known allergies Hospital course: On 11/07/25, patient was examined and evaluated at the bedside, vital signs, labs and chart was reviewed. The patient reports neck pain 7/10, surgical team is on board, they recommend warm compresses and evaluation for possible drainage. WBC are trending up. Blood cultures and wound cultures were ordered. Patient was started in empiric IV antibiotics. Mild Insulin sliding scale was started. Patient was started on lisinopril 10 mg p.o. daily. Due to sepsis IV fluids were started, blood and wound cultures are pending. ROS Constitutional: No: Fever, Chills, Sweats, Weakness, Malaise, Other Eyes: No: Pain, Vision change, Conjunctivae inflammation, Eyelid inflammation, Other, Redness ENT: Neck pain, edema. No: Ear pain, Ear discharge, Respiratory: No: Cough, Dry, Shortness of breath, SOB with excertion, Wheezing, Hemoptysis, Pleuritic Pain, Sputum, Wheezing, Other Cardiovascular: No: Chest Pain, Palpitations, Orthopnea, Paroxysmal Noc. Dyspnea, Edema, Lt Headedness, Other Gastrointestinal: No: Nausea, Vomiting, Abdominal Pain, Diarrhea, Constipation, Melena, Hematochezia, Other Genitourinary: No Dysuria, No Frequency, No Incontinence, No Hematuria, No Retention, No Other Musculoskeletal: No: other, neck pain, shoulder pain, arm pain, back pain, hand pain, leg pain, foot pain Skin: Other (abscess on left side of neck, and 2 in right side of groin); No: Rash, Lesions, Jaundice, Bruising Neurological: No: Weakness, Numbness, Incoordination, Change in speech, Confusion, Seizures, Other Objective vital signs Vital Sign Date Time Temp Pulse Resp B/P (MAP) Pulse Ox O2 Delivery O2 Flow Rate FiO2 11/07/25 09:13 149/90 11/07/25 09:00 98.7 94 18 94 98.7 11/07/25 08:00 Room Air* 0 21 Total Intake and Output 11/06/25 11/06/25 11/07/25 15:00 23:00 07:00 Intake Total 300 ml 550 ml 0 ml Balance 300 ml 550 ml 0 ml medications Current Medications Medications Dose Ordered Sig/Christopher Route Start Time Stop Time Status Last Admin Dose Admin Acetaminophen/ Hydrocodone Bitart 1 tab Q4HP PRN PO 11/06/25 12:45 11/07/25 08:37 1 TAB Ondansetron HCl 4 mg Q4HP PRN IV 11/06/25 12:45 Docusate Sodium 100 mg BIDPRN PRN PO 11/06/25 12:45 Acetaminophen 650 mg Q6HP PRN PO 11/06/25 12:45 Morphine Sulfate 2 mg Q4HPRN PRN IV 11/06/25 12:45 Cefepime HCl 50 ml @ 12.5 mls/hr Q8HR IV 11/06/25 14:00 11/07/25 06:15 12.5 MLS/HR Lisinopril 10 mg DAILY PO 11/07/25 10:00 11/07/25 09:13 10 MG Diagnostic Test (Pha) 1 strip ACHS 11/06/25 22:00 11/07/25 06:18 1 STRIP Insulin Human Regular HS SC 11/06/25 22:00 11/06/25 21:39 8 UNITS Insulin Human Regular AC SC 11/07/25 07:00 11/07/25 06:19 3 UNITS Dextrose 50 ml UD PRN IV 11/06/25 18:00 Doxycycline Hyclate 100 ml @ 50 mls/hr Q12H IV 11/07/25 08:45 Sodium Chloride 1,000 ml @ 60 mls/hr [id number] IV 11/07/25 11:30 UNV Examination General Appearance: Alert, Oriented X3, Cooperative, mild distress HEENT: Atraumatic, PERRLA Neck; There is a large abscess on the back of the neck, with edema, erythema and warmth, tender to touch, no actively draining, Respiratory: Clear to auscultation, Normal air movement Cardiovascular: Regular rate, Normal S1, Normal S2, No murmurs Abdominal: Normal bowel sounds, Soft, No tenderness, No hepatospenomegaly Extremities: No clubbing, No cyanosis, No edema, Normal pulses, No tenderness/swelling Inguinal area: On the left there are 2 healed abscess, no erythema, edema or warmth. Skin: No rashes, No breakdown, No significant lesion Neuro: Normal gait, Normal speech, Strength at 5/5 X4 ext Psych/Mental Status: Mental status NL laboratory and microbiology Laboratory Tests 11/07/25 04:56 Test 11/07/25 04:56 Range/Units Serum Glucose 162 #H 74-106 mg/dL Microbiology Date/Time Source Procedure Growth Status 11/06/25 07:39 Blood Blood Culture - Preliminary NO GROWTH AFTER 24 HOURS OF INCUBATION. Resulted Problem List/Assessment/Plan Problem List/Assessment/Plan #Sepsis due to acute neck abscess Leukocytosis,Tachycardic Surgical consult: I&D tomorrow. Wound care consult, IV antibiotics: Doxycycline and Cefepime IV hydration #Chronic Uncontrolled DM2 with Hyperglycemia, #Chronic DM2 with proteinuria HbA1c 13.1 Accu checks Mild insulin sliding scale #Chronic uncontrolled hypertensive heart disease with possible systolic failure Started on antihypertensives, PRN antihypertensives, #Precipitous drop of hematocrit 38.9 Monitor H&H #Acute Intravascular volume depletion IV fluids #Obesity Counseling about healthy life style GI: pantoprazol DVT prophylaxis: patient deambulates Diet: Low carb, NPO after midnight for procedure. Code status: Full code PCP: No established (home health care physician consult placed) Goals of care discussed with patient >30min. Case and plan discussed with Dr. Arredondo. Plan discussed with: Patient My Orders My Orders Orders - SAL,ROSENDO RESIDENT Procedure Category Date Status Time Sodium Chloride 0.9% PHA 11/07/25 Logged 11:30 Consult Care CONS 11/07/25 Transmitted Coordinator Consult Care CONS 11/07/25 Transmitted Coordinator Visit Coding STANDARD RES Billing Provider: JUNIOR FLORES MD Date of Service if different f: Nov 07, 2025 Common Visit Codes: [id number] INP/OBS CARE(HIGH) ROSENDO HUANG RESIDENT Nov 07, 2025 11:38
[2025-11-07 15:17] LABS: Protein, Urine 403.6 mg/dL (1-14)
[2025-11-07] MEDS: ERGOCALCIFEROL 50,000 UNIT(1.25MG) CAP PO SCH (17:40)
[2025-11-07] MEDS: ONDANSETRON HCL 4 MG/2 ML VIAL IV PRN (17:41)
[2025-11-08] VITALS (9 sets, daily range): BP systolic 116–176; BP diastolic 81–104; PULSE 86–101; RESP 17–19; TEMP 97.5–99.4; O2SAT 93–97
[2025-11-08] MEDS: hydrALAZINE HCL 20 MG/ML VL IV ONE (04:27)
[2025-11-08 07:16] LABS: Hematocrit 36.8 % (41.0-53.0); Hemoglobin 12.7 g/dL (13.5-17.5); Mean Corpuscular Hemoglobin 30.4 pg (28.0-32.0); Mean Corpuscular Volume 88.1 fL (80.0-100.0); Nucleated Red Blood Cells % 0.0 %
[2025-11-08 07:24] LABS: Potassium 4.0 mmol/L (3.5-5.1)
[2025-11-08 07:25] LABS: Anion Gap 9 (5-15); Carbon Dioxide 26 mmol/L (20-31)
[2025-11-08 07:31] LABS: BUN/Creatinine Ratio 16.3 (10.0-20.0); Blood Urea Nitrogen 16 mg/dL (9-23)
[2025-11-08 07:32] LABS: Calcium 8.4 mg/dL (8.7-10.4); Chloride 98 mmol/L (98-107); Glucose 176 mg/dL (74-106); Sodium 133 mmol/L (136-145)
[2025-11-08] MEDS ORDERED: PROPOFOL 10 MG/ML 20 ML IV ONE (12:16)
[2025-11-08] MEDS ORDERED: fentaNYL CITRATE 100 MCG/2 ML VL ONE (12:16)
[2025-11-08] MEDS ORDERED: MIDAZOLAM HCL 2MG/2ML 2ml VIAL (1mg/ml) ONE (12:16)
[2025-11-08] MEDS: LIDOCAINE W/ EPINEPHRINE 1% 20ML VIAL ONE (12:34)
[2025-11-08] MEDS: BUPIVACAINE 0.5% P/F INJ 10 ML VIAL ONE (12:34)
--- NOTE | 2025-11-08 13:05 | DVHOP2 ---
Operative Report - 2 Report Details Date: 11/08/25 Preop Diagnosis: neck abscess Postop Diagnosis: neck abscess Surgeon: Eduar Novoa Anesthesiologist: Dr. Lovett Anesthesia: Mac Consent: The patient was informed of the risks and benefits of the procedure. These include but are not limited to complications of anesthesia, postoperative infection, incomplete relief of symptoms, recurrence of symptoms, damage to blood vessels, nerves and tendons, deep venous thrombosis, pulmonary embolism and possible need for repeat surgery in the future. Indications for Surgery: neck abscess Name of Procedure Performed incision and drainage of neck abscess Procedure Details Procedure Details: Under the supervision of Dr. Correa and under adequate anesthesia the patient was placed in a right lateral position. The area was then prepped and draped. An incision was made to expel purulent material which was cultured. The wound was than irrigated with normal saline. The wound was packed with 1/4 inch iodoform. All needle , blade and sponge counts were correct. Patient transferred to recovery without incident. Condition Good Disposition Still a Patient EDUAR ARORA NP Nov 08, 2025 13:05
[2025-11-08] MEDS: MORPHINE SULFATE INJ 2 MG/ml SYRG IV PRN (13:15)
[2025-11-08] MEDS: LABETALOL HCL 20 MG/4 ML VL IV ONE (13:41)
[2025-11-08] MEDS: HYDROmorphone HCL 2 MG/ML VL/or syr IV PRN (13:42)
[2025-11-08] MEDS: HYDROmorphone HCL 2 MG/ML VL/or syr ONE (13:42)
[2025-11-08] MEDS: LABETALOL HCL 20 MG/4 ML VL IV PRN (13:59)
[2025-11-08] MEDS ORDERED: LABETALOL HCL 20 MG/4 ML VL IV PRN (15:45)
[2025-11-08] MEDS ORDERED: hydrALAZINE HCL 20 MG/ML VL IV PRN (15:45)
[2025-11-08] MEDS ORDERED: ONDANSETRON HCL 4 MG/2 ML VIAL IV PRN (15:45)
[2025-11-08] MEDS ORDERED: MIDAZOLAM HCL 2MG/2ML 2ml VIAL (1mg/ml) IV PRN (15:45)
[2025-11-08] MEDS ORDERED: HYDROmorphone HCL 2 MG/ML VL/or syr IV PRN (15:45)
[2025-11-08] MEDS ORDERED: MORPHINE SULFATE 4 MG/ML SYR/VIAL IV PRN (15:45)
--- NOTE | 2025-11-08 19:50 | DVHPNRES ---
Progress Note Date Seen: Nov 08, 2025 Resident Creating Document: ROSENDO HUANG RESIDENT Has the PT tested + for MRSA If YES, has PT been informed?: No Medical Necessity Reason Pt with a Central, PICC or Fol: No Subjective Review of Systems Marcelino Collazo is a 50-year-old male with past medical history of hypertension and diabetes mellitus type 2. The patient came to the [facility] ED with chief complaint of 2 weeks of an abscess on the back of his neck, that is tender 7/10 dull pain, associated with erythema, edema and yellowish secretion. On further questioning, the patient reports he had 2 abscess in his left groin that resolved after spontaneous drainage. The patient admits to being diabetic and having hypertension, but not following up with primary care provider and not having any medications. The patient reported the swelling on his neck worsen and the paint prevented from moving his neck, this prompted his visit to the ED. In the ED WBC was 11 and HbA1C was 13.1%. The patient was admitted for further diagnostic and management. PMHx: HTN and Diabetes Past Surgical History: None Social Hx: Smoke: No, alcohol:occasional Drugs: Other (Methamphetamines) Lives: with Family Allergies: No known allergies Hospital course: On 11/07/25, patient was examined and evaluated at the bedside, vital signs, labs and chart was reviewed. The patient reports neck pain 7/10, surgical team is on board, they recommend warm compresses and evaluation for possible drainage. WBC are trending up. Blood cultures and wound cultures were ordered. Patient was started in empiric IV antibiotics. Mild Insulin sliding scale was started. Patient was started on lisinopril 10 mg p.o. daily. Due to sepsis IV fluids were started, blood and wound cultures are pending. On 11/08/25, patient was examined and evaluated at the bedside, vital signs, labs and chart was reviewed. The patient reports neck pain 7/10. The surgical team is on board, they recommend I&D, the patient when today to I&D, abscess was drained with no complications. The patient continue with IV antibiotics. Blood cultures are negative at 48hrs and wound cultures are still pending. We will continue this patient follow up closely. ROS Constitutional: No: Fever, Chills, Sweats, Weakness, Malaise, Other Eyes: No: Pain, Vision change, Conjunctivae inflammation, Eyelid inflammation, Other, Redness ENT: Neck pain and edema. No: Ear pain, Ear discharge, Respiratory: No: Cough, Dry, Shortness of breath, SOB with excertion, Wheezing, Hemoptysis, Pleuritic Pain, Sputum, Wheezing, Other Cardiovascular: No: Chest Pain, Palpitations, Orthopnea, Paroxysmal Noc. Dyspnea, Edema, Lt Headedness, Other Gastrointestinal: No: Nausea, Vomiting, Abdominal Pain, Diarrhea, Constipation, Melena, Hematochezia, Other Genitourinary: No Dysuria, No Frequency, No Incontinence, No Hematuria, No Retention, No Other Musculoskeletal: No: other, neck pain, shoulder pain, arm pain, back pain, hand pain, leg pain, foot pain Skin: Other (abscess on left side of neck, and 2 in right side of groin); No: Rash, Lesions, Jaundice, Bruising Neurological: No: Weakness, Numbness, Incoordination, Change in speech, Confusion, Seizures, Other Objective vital signs Vital Sign Date Time Temp Pulse Resp B/P (MAP) Pulse Ox O2 Delivery O2 Flow Rate FiO2 11/08/25 17:28 87 176/98 11/08/25 16:59 99.0 18 96 99.0 11/08/25 12:55 Nasal Cannula 2.0 11/08/25 12:55 94 Total Intake and Output 11/07/25 11/07/25 11/08/25 15:00 23:00 07:00 Intake Total 50 ml 250 ml 882 ml Balance 50 ml 250 ml 882 ml medications Current Medications Medications Dose Ordered Sig/Christopher Route Start Time Stop Time Status Last Admin Dose Admin Acetaminophen/ Hydrocodone Bitart 1 tab Q4HP PRN PO 11/06/25 12:45 11/08/25 08:44 1 TAB Ondansetron HCl 4 mg Q4HP PRN IV 11/06/25 12:45 11/08/25 08:44 4 MG Docusate Sodium 100 mg BIDPRN PRN PO 11/06/25 12:45 Acetaminophen 650 mg Q6HP PRN PO 11/06/25 12:45 Morphine Sulfate 2 mg Q4HPRN PRN IV 11/06/25 12:45 11/08/25 13:15 2 MG Cefepime HCl 50 ml @ 12.5 mls/hr Q8HR IV 11/06/25 14:00 11/08/25 05:57 12.5 MLS/HR Lisinopril 10 mg DAILY PO 11/07/25 10:00 11/08/25 10:37 10 MG Diagnostic Test (Pha) 1 strip ACHS 11/06/25 22:00 11/08/25 17:28 1 STRIP Insulin Human Regular HS SC 11/06/25 22:00 11/07/25 21:35 6 UNITS Insulin Human Regular AC SC 11/07/25 07:00 11/08/25 17:00 2 UNITS Dextrose 50 ml UD PRN IV 11/06/25 18:00 Doxycycline Hyclate 100 ml @ 50 mls/hr Q12H IV 11/07/25 08:45 11/08/25 08:44 50 MLS/HR Sodium Chloride 1,000 ml @ 60 mls/hr [id number] IV 11/07/25 11:30 11/07/25 11:30 60 MLS/HR Ergocalciferol 50,000 unit Q7D PO 11/07/25 14:45 11/07/25 17:40 50,000 UNIT Hydromorphone HCl 0.5 mg [id number] PRN IV 11/08/25 13:45 11/08/25 13:52 0.5 MG Labetalol HCl 10 mg [id number] PRN IV 11/08/25 13:45 11/08/25 17:28 10 MG Labetalol HCl 5 mg Q2HPRN PRN IV 11/08/25 15:45 Examination General Appearance: Alert, Oriented X3, Cooperative, mild distress HEENT: Atraumatic, PERRLA Neck; There is a large abscess on the back of the neck, with edema, erythema and warmth, tender to touch, no actively draining, Respiratory: Clear to auscultation, Normal air movement Cardiovascular: Regular rate, Normal S1, Normal S2, No murmurs Abdominal: Normal bowel sounds, Soft, No tenderness, No hepatospenomegaly Extremities: No clubbing, No cyanosis, No edema, Normal pulses, No tenderness/swelling Inguinal area: On the left there are 2 healed abscess, no erythema, edema or warmth. Skin: No rashes, No breakdown, No significant lesion Neuro: Normal gait, Normal speech, Strength at 5/5 X4 ext Psych/Mental Status: Mental status NL laboratory and microbiology Laboratory Tests 11/08/25 06:40 Test 11/08/25 06:40 Range/Units Serum Glucose 176 H 74-106 mg/dL Microbiology Date/Time Source Procedure Growth Status 11/06/25 07:39 Blood Blood Culture - Preliminary NO GROWTH AFTER 48 HOURS OF INCUBATION. Resulted Problem List/Assessment/Plan Problem List/Assessment/Plan #Sepsis due to acute neck abscess, staphylococcal Leukocytosis,Tachycardic Surgical consult: I&D: on 11/08/25 Wound care consult: ongoing Blood cultures: negative at 48hrs Wound culture: pending IV antibiotics: Doxycycline and Cefepime IV hydration #Chronic Uncontrolled DM2 with Hyperglycemia, #Chronic DM2 with proteinuria Low carb diet HbA1c 13.1 Accu checks Mild insulin sliding scale #Chronic uncontrolled hypertensive heart disease with possible systolic/diastolic failure Started on antihypertensives, PRN antihypertensives, #Precipitous drop of hematocrit 38.9 Monitor H&H #Acute Intravascular volume depletion IV fluids #Obesity BMI 27.6 Counseling about healthy life style GI: pantoprazol DVT prophylaxis:Lovenox Diet: Low carb, NPO after midnight for procedure. Code status: Full code PCP: No established (hiv/aids care nurse consult placed) Goals of care discussed with patient >30min. Case and plan discussed with Dr. Arredondo. Plan discussed with: Patient My Orders My Orders Orders - ROSENDO HUANG RESIDENT Procedure Category Date Status Time Electrocardigram EKG 11/08/25 Logged 04:09 Consistent DIET 11/08/25 Transmitted Carb(Ccho)Diabetes Dinner Visit Coding STANDARD RES Billing Provider: JUNIOR FLORES MD Date of Service if different f: Nov 08, 2025 Common Visit Codes: [id number] INP/OBS CARE(HIGH) ROSENDO HUANG RESIDENT Nov 08, 2025 19:50 TREVIN KLINE RESIDENT Nov 09, 2025 16:58
[2025-11-09 01:00] VITALS: BP 125/77; PULSE 83; RESP 18; TEMP 98.5; O2SAT 96
[2025-11-09 05:00] VITALS: BP 142/86; PULSE 83; RESP 18; TEMP 97.6; O2SAT 96
[2025-11-09 07:17] LABS: Hematocrit 36.4 % (41.0-53.0); Hemoglobin 12.7 g/dL (13.5-17.5); Mean Corpuscular Hemoglobin 30.3 pg (28.0-32.0); Mean Corpuscular Volume 87.1 fL (80.0-100.0); Nucleated Red Blood Cells % 0.0 %
[2025-11-09 08:07] VITALS: RESP 18
[2025-11-09 08:51] VITALS: BP 145/87; PULSE 85; RESP 16; TEMP 98.5; O2SAT 95
--- NOTE | 2025-11-09 09:06 | ECG ---
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
--- NOTE | 2025-11-09 11:40 | DVHDSRES ---
Discharge Summary Date of Admission Resident Creating Document: ROSENDO HUANG RESIDENT Nov 06, 2025 at 12:42 Date of Discharge: Nov 09, 2025 Admitting Diagnosis #Sepsis due to acute neck abscess, staphylococcal #Chronic Uncontrolled DM2 with Hyperglycemia, #Chronic DM2 with proteinuria #Chronic uncontrolled hypertensive heart disease with possible systolic/diastolic failure #Precipitous drop of hematocrit #Acute Intravascular volume depletion #Obesity BMI 27.6 Wounds: Neck abscess Labs/Diagnostic Data: Laboratory Results Test 11/09/25 06:45 11/09/25 06:32 11/08/25 06:40 11/07/25 10:30 White Blood Count 8.0 10^3/uL (4.4-10.8) Red Blood Count 4.18 10^6/uL (4.5-5.90) Hemoglobin 12.7 g/dL (13.5-17.5) Hematocrit 36.4 % (41.0-53.0) Mean Corpuscular Volume 87.1 fL (80.0-100.0) Mean Corpuscular Hemoglobin 30.3 pg (28.0-32.0) Mean Corpuscular Hemoglobin Concent 34.8 g/dL (32.0-36.0) Red Cell Distribution Width 12.7 % (11.8-14.3) Platelet Count 344 10^3/uL (140-450) Mean Platelet Volume 7.0 fL (6.9-10.8) Neutrophils (%) (Auto) 59.0 % (37.0-80.0) Lymphocytes (%) (Auto) 25.6 % (10.0-50.0) Monocytes (%) (Auto) 13.9 % (0.0-12.0) Eosinophils (%) (Auto) 1.0 % (0.0-7.0) Basophils (%) (Auto) 0.5 % (0.0-2.0) Neutrophils # (Auto) 4.7 10 ^3/uL (1.6-8.6) Lymphocytes # (Auto) 2.1 10 ^3/uL (0.4-5.4) Monocytes # (Auto) 1.1 10 ^3/uL (0-1.3) Eosinophils # (Auto) 0.1 10 ^3/uL (0-0.8) Basophils # (Auto) 0 10 ^3/uL (0-0.2) Nucleated Red Blood Cells 0.0 % POC Glucose 158 mg/dl (70-106) Sodium Level 133 mmol/L (136-145) Potassium Level 4.0 mmol/L (3.5-5.1) Chloride Level 98 mmol/L (98-107) Carbon Dioxide Level 26 mmol/L (20-31) Anion Gap 9 (5-15) Blood Urea Nitrogen 16 mg/dL (9-23) Creatinine 0.98 mg/dL (0.700-1.30) Glomerular Filtration Rate Calc 93 mL/min (>90) BUN/Creatinine Ratio 16.3 (10.0-20.0) Serum Glucose 176 mg/dL (74-106) Calcium Level 8.4 mg/dL (8.7-10.4) Prothrombin Time 10.7 sec (9.3-11.8) Prothrombin Time INR 1.01 (0.9-1.15) Activated Partial Thromboplast Time 32.9 SEC (24.5-34.5) C-Reactive Protein High Sensitivity 3.36 mg/dL (<1.0) Test 11/07/25 04:56 11/06/25 11:05 11/06/25 10:05 11/06/25 07:34 Erythrocyte Sedimentation Rate 64 mm/hr (0-20) Total Bilirubin 0.6 mg/dL (0.2-1.0) Aspartate Amino Transferase (AST) 13 U/L (13-40) Alanine Aminotransferase (ALT) 13 U/L (7-40) Alkaline Phosphatase 81 U/L (46-116) B-Type Natriuretic Peptide 220.39 pg/mL (0-100) Total Protein 6.0 g/dL (5.7-8.2) Albumin 3.3 g/dL (3.2-4.8) Vitamin B12 Level 429 pg/mL (211-911) Vitamin D 25-Hydroxy 20.0 ng/mL (30.0-100) Thyroid Stimulating Hormone (TSH) 0.59 uIU/mL (0.55-4.78) Urine Creatinine 61.60 mg/dL (30.0-125.0) Urine Protein/Creatinine Ratio 6.55 Urine Sodium 69 mmol/L (40-220) Urine Total Protein 403.6 mg/dL (1-14) Urine Opiates Screen Neg (NEGATIVE) Urine Fentanyl Screen Neg (NEGATIVE) Urine Barbiturates Screen Neg (NEGATIVE) Urine Phencyclidine Screen Neg (NEGATIVE) Urine Amphetamines Screen Neg (NEGATIVE) Urine Benzodiazepines Screen Neg (NEGATIVE) Urine Cocaine Screen Neg (NEGATIVE) Urine Cannabinoids Screen Neg (NEGATIVE) Urine Color Light-yellow (Yellow) Urine Clarity Clear (Clear) Urine pH 6.0 (5.0-9.0) Urine Specific [place] 1.037 (1.001-1.035) Urine Protein 2+ (Negative) Urine Ketones Negative (Negative) Urine Blood 2+ /uL (Negative) Urine Nitrite Negative (Negative) Urine Bilirubin Negative (Negative) Urine Urobilinogen Normal mg/dL (Negative) Urine Leukocyte Esterase Negative /uL (Negative) Urine RBC 15 /hpf (0 - 3) Urine Microscopic WBC 1 /HPF (0-3) Urine Squamous Epithelial Cells Few /hpf (<5) Urine Bacteria None seen /hpf (None Seen) Urine Glucose 4+ mg/dL (Normal) Hemoglobin A1c 13.1 % A1C (<5.7) Lactic Acid Level 0.9 mmol/L (0.4-2.0) Other Laboratory Tests 11/09/25 06:45 11/08/25 06:40 Brief Hx & Hospital Course: Marcelino Collazo is a 50-year-old male with past medical history of hypertension and diabetes mellitus type 2. The patient came to the [facility] ED with chief complaint of 2 weeks of an abscess on the back of his neck, that is tender 7/10 dull pain, associated with erythema, edema and yellowish secretion. On further questioning, the patient reports he had 2 abscess in his left groin that resolved after spontaneous drainage. The patient admits to being diabetic and having hypertension, but not following up with primary care provider and not having any medications. The patient reported the swelling on his neck worsen and the paint prevented from moving his neck, this prompted his visit to the ED. In the ED WBC was 11 and HbA1C was 13.1%. The patient was admitted for further diagnostic and management. PMHx: HTN and Diabetes Past Surgical History: None Social Hx: Smoke: No, alcohol:occasional Drugs: Other (Methamphetamines) Lives: with Family Allergies: No known allergies Hospital course: During his hospital admission, the patient was evaluated and assessed as follow: On 11/07/25, patient was examined and evaluated at the bedside, vital signs, labs and chart was reviewed. The patient reports neck pain 7/10, surgical team is on board, they recommend warm compresses and evaluation for possible drainage. WBC are trending up. Blood cultures and wound cultures were ordered. Patient was started in empiric IV antibiotics. Mild Insulin sliding scale was started. Patient was started on lisinopril 10 mg p.o. daily. Due to sepsis IV fluids were started, blood and wound cultures are pending. On 11/08/25, patient was examined and evaluated at the bedside, vital signs, labs and chart was reviewed. The patient reports neck pain 7/10. The surgical team is on board, they recommend I&D, the patient when today to I&D, abscess was drained with no complications. The patient continue with IV antibiotics. Blood cultures are negative at 48hrs and wound cultures are still pending. We will continue this patient follow up closely. On 11/08/25, patient was examined and evaluated at the bedside, vital signs, labs and chart was reviewed. The patient report feeling better after drainage, pain is 3/10. No fever during the nigh. Due to significant clinical improvement surgery cleared the patient for discharge. The patient will be discharge home with oral antibiotics. The patient will follow up with surgery on Thursday11/14/25 in the outpatient clinic. The patient will f/u with PCP and in d/c clinic within 1 week for cultures results. ROS Constitutional: No: Fever, Chills, Sweats, Weakness, Malaise, Other Eyes: No: Pain, Vision change, Conjunctivae inflammation, Eyelid inflammation, Other, Redness ENT: Neck pain and edema. No: Ear pain, Ear discharge, Respiratory: No: Cough, Dry, Shortness of breath, SOB with excertion, Wheezing, Hemoptysis, Pleuritic Pain, Sputum, Wheezing, Other Cardiovascular: No: Chest Pain, Palpitations, Orthopnea, Paroxysmal Noc. Dyspnea, Edema, Lt Headedness, Other Gastrointestinal: No: Nausea, Vomiting, Abdominal Pain, Diarrhea, Constipation, Melena, Hematochezia, Other Genitourinary: No Dysuria, No Frequency, No Incontinence, No Hematuria, No Retention, No Other Musculoskeletal: No: other, neck pain, shoulder pain, arm pain, back pain, hand pain, leg pain, foot pain Skin: Other (abscess on left side of neck, and 2 in right side of groin); No: Rash, Lesions, Jaundice, Bruising Neurological: No: Weakness, Numbness, Incoordination, Change in speech, Confusion, Seizures, Other General Appearance: Alert, Oriented X3, Cooperative, mild distress HEENT: Atraumatic, PERRLA Neck; There is a large abscess on the back of the neck, with edema, erythema and warmth, tender to touch, no actively draining, Respiratory: Clear to auscultation, Normal air movement Cardiovascular: Regular rate, Normal S1, Normal S2, No murmurs Abdominal: Normal bowel sounds, Soft, No tenderness, No hepatospenomegaly Extremities: No clubbing, No cyanosis, No edema, Normal pulses, No tenderness/swelling Inguinal area: On the left there are 2 healed abscess, no erythema, edema or warmth. Skin: No rashes, No breakdown, No significant lesion Neuro: Normal gait, Normal speech, Strength at 5/5 X4 ext Psych/Mental Status: Mental status NL Consults/Reason for consult Surgery: Neck abscess drainage Operations or Procedures PROCEDURE(s): CXRP - CHEST PORTABLE REASON: htn ORDER NUMBER(s): [id number], ACCESSION NUMBER(s): [id number] EXAM: XY CHEST PORTABLE HISTORY: htn COMPARISON: Chest x-ray dated 12/12/2022 was not made available on the PACS system for viewing. TECHNIQUE: Portable AP view of the chest was performed. FINDINGS: No pneumothorax or consolidative infiltrates. There is central interstitial prominence. The heart is borderline enlarged. IMPRESSION: Central interstitial prominence may be due to reactive airways disease or mild CHF. The lungs are otherwise clear. ATED BY: GISELL WALLACE MD DICTATED DATE/TIME: 11/06/25 0801 Operative Report - 2 Report Details Date: 11/08/25 Preop Diagnosis: neck abscess Postop Diagnosis: neck abscess Surgeon: Fox Novoa Anesthesiologist: Dr. Lovett Anesthesia: Mac Consent: The patient was informed of the risks and benefits of the procedure. These include but are not limited to complications of anesthesia, postoperative infection, incomplete relief of symptoms, recurrence of symptoms, damage to blood vessels, nerves and tendons, deep venous thrombosis, pulmonary embolism and possible need for repeat surgery in the future. Indications for Surgery: neck abscess Name of Procedure Performed incision and drainage of neck abscess Procedure Details Procedure Details: Under the supervision of Dr. Correa and under adequate anesthesia the patient was placed in a right lateral position. The area was then prepped and draped. An incision was made to expel purulent material which was cultured. The wound was than irrigated with normal saline. The wound was packed with 1/4 inch iodoform. All needle , blade and sponge counts were correct. Patient transferred to recovery without incident. Condition Good Condition at Discharge: Stable Final Diagnosis/Problems List #Sepsis due to acute neck abscess, staphylococcal #Chronic Uncontrolled DM2 with Hyperglycemia, #Chronic DM2 with proteinuria #Chronic uncontrolled hypertensive heart disease with possible systolic/diastolic failure #Precipitous drop of hematocrit #Acute Intravascular volume depletion #Obesity BMI 27.6 Discharge Disposition: Home SNF Discharge Will this Physician continue t: No Discharge Instruct/Medications Diet: Consistent carbohydrate Diet comment: Strict diabetic diet Activity: No Restrictions, As Tolerated Follow Up/Referral: F/u with Surgery in out patient clinic with Fox arroyo 11/14/25 F/U with PCP for DM2 control and regular follow ups. Medications: Doxycicline 100mg po bid for 7 days Metformin extended release 1000mg po bid Jardiance 25mg po daily (Note: the patient denied insuline) Scheduled Doxycycline (Monohydrate) (Doxycycline), 100 MG PO DAILY Empagliflozin (Jardiance), 25 MG PO DAILY Lisinopril (Lisinopril), 10 MG PO DAILY Metformin Hydrochloride (Metformin Hcl Er), 1 TAB PO BID Discharge Statement: "Patient was advised to return to the ER or call 911 if any headaches, dizziness, shortness of breath, chest pain, abdominal pain, bleeding, fevers, or worsening of medical condition. Patient was counseled about treatment plan, medications, possible side effects, patientverbalized understanding. All questions were answered to the best of my ability. This discharge took greater then 30 minutes in planning, reviewing documentation, counseling the patient, and discussing with other team members." ASSESSMENT ASSESSMENT Assessment #Sepsis due to acute neck abscess, staphylococcal #Chronic Uncontrolled DM2 with Hyperglycemia, #Chronic DM2 with proteinuria #Chronic uncontrolled hypertensive heart disease with possible systolic/diastolic failure #Precipitous drop of hematocrit #Acute Intravascular volume depletion #Obesity BMI 27.6 Discharge plan discussed with patient >30min, PCP: no establish, the patient will follow up in the DC clinic. Case and plan discussed with Dr. Arredondo. Visit Coding STANDARD RES Billing Provider: JUNIOR FLORES MD Date of Service if different f: Nov 09, 2025 Common Visit Codes: 45858-TPS/OBS DISCH DAY >30min ROSENDO HUANG RESIDENT Nov 09, 2025 11:40
[2025-11-09 13:12] VITALS: BP 142/86; PULSE 90; RESP 16; TEMP 98.3; O2SAT 94
[2025-11-09] MEDS ORDERED: EMPA1TAB3 PO (13:16)
[2025-11-09] MEDS ORDERED: DOXY150C6 PO (13:16)
[2025-11-09] MEDS ORDERED: LISI-275 PO (13:16)
[2025-11-09] MEDS ORDERED: METF-490 PO (13:16)
[2025-11-09 13:24] VITALS: BP 145/87; PULSE 101; TEMP 36.8
== END 2025-11-09 16:00 | disposition home or self-care (01) | DRG 710 ==
LOC: ER 06:50 → OVERFLOW 12:42 → WEST WING 22:43
PROVIDERS: ADMIT Student in an Organized Health Care Education/Training Program; ATTEND Student in an Organized Health Care Education/Training Program
PROC: 0W960ZZ Drainage of Neck, Open Approach (ICD-10-PCS; principal; 2025-11-08 12:18)
DX: A41.2 Sepsis due to unspecified staphylococcus (principal); I16.0 Hypertensive urgency; I50.42 Chronic combined systolic (congestive) and diastolic (congestive) heart failure; I11.0 Hypertensive heart disease with heart failure; L02.214 Cutaneous abscess of groin; L02.11 Cutaneous abscess of neck; E11.65 Type 2 diabetes mellitus with hyperglycemia; E66.9 Obesity, unspecified; R71.0 Precipitous drop in hematocrit; E86.9 Volume depletion, unspecified; R80.9 Proteinuria, unspecified; Z68.27 Body mass index [BMI] 27.0-27.9, adult
CPT/HCPCS: 36415; 71045; 80048; 80053; 80307; 81001; 82306; 82570; 82607; 82962; 83036; 83605; 83880; 84156; 84300; 84443; 85025; 85610; 85652; 85730; 86141; 86850; 86900; 86901; 87040; 87070; 87075; 87077; 87186; 87205; 93005; 99291; G0378; J1100; J1815; J2250; J2405; J2704; J3490